=== PATIENT | female | born 1950 | race Caucasian/White ===

== ENCOUNTER 2017-01-19 14:18 | Emergency (ER) | payer MEDICARE, OTHER ==
[~2017-01-19 14:18] MED LIST: ALBUTEROL SULF8.5 GM INH; AMBIEN10 M1 PO; AMBIEN10 MG PO; ANTI-DIARRHEA2 MG PO; ASCOL PO; ASPIRIN325 M3 PO; ATARAX25 MG PO; CLONAZEPAM1 MG PO; CRESTOR10 MG PO; CRESTOR20 MG; CRESTOR5 MG PO; DOXEPIN HCL10 M1 PO; DOXEPIN HCL25 M1 PO; EFFEXOR PO; EFFEXOR XR37.5 M1 PO; EFFEXOR37.5 MG PO; ENABLEX15 MG; ESTRACE1 MG PO; INCRUSE ELLI62.5 MCG IH; KLONOPIN0.5 M1 PO; KLONOPIN1 MG PO; MOBIC15 M2 PO; MOBIC15 MG PO; MOTRIN800 MG PO; NORCO 10/325 TA1 TAB PO; NORCO 7.5/325 T1 TAB PO; PERCOCET 5/3251 TAB PO; PREVALITE4 GM/PK3 PO; PROAIR HFA8.5 GM IH; REQUIP0.5 M1 PO; REQUIP0.5 MG PO; ROXICODONE5 M2 PO; SENNA-S TABLET1 EAC3 PO; SINEQUAN25 MG PO; SYMBICORT 160-4.6 GM INH; TYLENOL EXTRA500 M1 PO; TYLENOL325 M2 PO; TYLENOL500 MG PO; VICODIN 5/500 T1 TAB PO; VOSPIRE ER4 MG; VOSPIRE ER4 MG PO; ZOFRAN4 MG PO
== END 2017-01-19 16:13 ==
LOC: EDMED 14:18
PROC: 0RSWXZZ Reposition Right Finger Phalangeal Joint, External Approach (ICD-10-PCS; principal; 2017-01-19)
DX: S63.286A Dislocation of proximal interphalangeal joint of right little finger, initial encounter (principal); W22.09XA Striking against other stationary object, initial encounter